=== PATIENT | male | born 1970 | race Caucasian/White ===

== ENCOUNTER 2023-10-25 08:10 | Outpatient (CLI) | payer OTHER, SELFPAY ==
--- NOTE | ~2023-10-25 | MR_ITS ---
EXAMINATION: MR hip LT wo con DATE: 10/25/2023 09:19 INDICATION: Trochanteric bursitis, left hip. TECHNIQUE: Magnetic resonance imaging (MRI) of the left hip was performed without intravenous contras t. COMPARISON: Pelvis and left hip radiographs 02/21/2023 FINDINGS: Bones/cartilage: There is dextrocurvature at lumbosacral junction. There is severe lower lumbar spondylosis. There is decreased femoral head/neck offset bilaterally, which may be seen with femoral acetabular impingement . The hip joints demonstrate tiny osteophyte bilaterally. Small [id number] images of left hip demo nstrate partial-thickness cartilage loss of the acetabulum laterally. Labrum: There is a tear of the left acetabular labrum. Fluid: There is no hip joint effusion. No significant trochanteric bursitis. Soft tissues: There is artifact in lateral right thigh suspicious for a subcutaneous foreign body. There is mild te ndinopathy of the hamstring tendon origins. The iliopsoas tendons are normal. The left gluteus medius minimus and gluteus medius tendons are normal. The right gluteus minimus and gluteus medius tendons are not well evaluated due to artifact. IMPRESSION: 1. No significant trochanteric bursitis. 2. Mild osteoarthritis of the hips. Reviewed, dictated and finalized at location A.
== END 2023-10-25 08:11 ==
LOC: GOSHIMG 08:13
PROVIDERS: PCP Family Medicine; Visit Provider Physician Assistant Surgical
DX: M16.0 Bilateral primary osteoarthritis of hip (principal)
CPT/HCPCS: 73721